=== PATIENT | female | born 1980 | race Caucasian/White ===

== ENCOUNTER 2020-05-24 06:37 | Emergency (ER) | payer MEDICAID, OTHER ==
[2020-05-24 06:53] VITALS: O2SAT 99
--- NOTE | 2020-05-24 06:57 | ERPHSYRPT ---
- History of Present Illness Time Seen by Provider: 05/24/20 06:45 Source: patient Exam Limitations: no limitations Physician History: 40-year-old white female smoker of cigarettes who presents with 3-day history of cough and wheezing. Patient has an inhaler of Ventolin and she is been using this was not helping much. Symptoms are worse. She has no fever. She has no shortness of breath. She has no myalgias or arthralgias. She does not have headache. She has no nausea vomiting or diarrhea Timing/Duration: day(s) (3) Cough Quality/Degree: dry cough Possible Cause: occasional episodes Modifying Factors: Improves With: coughing Associated Symptoms: cough, wheezing, No chest pain/soreness, No earache, No muscle aches, No shortness of breath Allergies/Adverse Reactions: No Known Drug Allergies Allergy (Unverified 06/03/19 08:21) Home Medications: Alprazolam 1 mg [Xanax 1 mg] 1 mg PO TID 06/08/14 [History] ALPRAZolam [Alprazolam] 0.5 mg PO TIDPRN 05/29/19 [History] Lisinopril 20 mg [Zestril 20 MG] 20 mg PO DAILY 05/29/19 [History] Sertraline HCl [Zoloft] 200 mg PO DAILY 05/29/19 [History] Trazodone HCl 150 mg PO HS PRN PRN 05/29/19 [History] Hx Tetanus, Diphtheria Vaccination/Date Given: Yes Hx Influenza Vaccination/Date Given: No Hx Pneumococcal Vaccination/Date Given: No Travel Risk - International Travel Have you traveled outside of the country in past 3 weeks: No - Coronavirus Screening Are you exhibiting any of the following symptoms?: Yes Symptoms: Cough: New Onset Close contact with a COVID-19 positive Pt in past 14-21 Days: No - Review of Systems Constitutional: No Symptoms Eyes: No Symptoms Ears, Nose, & Throat: No Symptoms Respiratory: Cough, Wheezing Cardiac: No Symptoms Abdominal/Gastrointestinal: No Symptoms Genitourinary Symptoms: No Symptoms Musculoskeletal: No Symptoms Skin: No Symptoms Neurological: No Symptoms Psychological: No Symptoms Endocrine: No Symptoms Hematologic/Lymphatic: No Symptoms Immunological/Allergic: No Symptoms All Other Systems: Reviewed and Negative - Past Medical History Pertinent Past Medical History: Yes Neurological History: No Pertinent History ENT History: No Pertinent History Cardiac History: No Pertinent History Respiratory History: No Pertinent History Endocrine Medical History: No Pertinent History Musculoskeletal History: No Pertinent History GI Medical History: No Pertinent History History: No Pertinent History Psycho-Social History: Depression Female Reproductive Disorders: No Pertinent History Other Medical History: pt lethargic, no family with her, unable to obtain hx. - Past Surgical History Past Surgical History: Yes (recent repeat ) Neuro Surgical History: No Pertinent History Cardiac: No Pertinent History Respiratory: No Pertinent History Gastrointestinal: No Pertinent History Genitourinary: No Pertinent History Musculoskeletal: No Pertinent History Female Surgical History: Section, Other Other Surgical History: pt lethargic, no family with her, unable to obtain hx. - Social History Smoking Status: Unknown if ever smoked Exposure to second hand smoke: No Drug Use: none Patient Lives Alone: No - Physical Exam General Appearance: no apparent distress, alert, anxiety Eye Exam: PERRL/EOMI, eyes nml inspection Ears, Nose, Throat Exam: normal ENT inspection Neck Exam: normal inspection, non-tender, supple, full range of motion Respiratory Exam: airway intact, wheezing (Mild expiratory), No normal breath sounds, No chest tenderness, No respiratory distress Cardiovascular Exam: regular rate/rhythm, normal heart sounds, normal peripheral pulses Gastrointestinal/Abdomen Exam: soft, normal bowel sounds, No tenderness Pelvic Exam: not done Rectal Exam: not done Back Exam: normal inspection, normal range of motion, No CVA tenderness, No vertebral tenderness Extremity Exam: normal inspection, normal range of motion, pelvis stable Neurologic Exam: alert, oriented x 3, cooperative, station cashier II-XII nml as tested, normal mood/affect, nml cerebellar function, nml station & gait, sensation nml Skin Exam: normal color, warm, dry Lymphatic Exam: No adenopathy SpO2 Interpretation: normal O2 Delivery: Room Air - Course Nursing assessment & vital signs reviewed: Yes - Progress Progress: unchanged Air Movement: good Blood Culture(s) Obtained: No Antibiotics given: No Counseled pt/family regarding: diagnosis, need for follow-up - Departure Departure Disposition: Home Clinical Impression: Bronchitis Condition: Stable Critical Care Time: No Referrals: BRENNAN FREY [Primary Care Provider] - Additional Instructions: Take medications as prescribed. Stop smoking. Avoid exposure to any smoke. Fo llow-up with your primary care physician for further management Forms: Work/School Release Form Prescriptions: Prednisone 10 mg [Deltasone 10 mg] 10 mg PO TID #12 tablet Hydrocodone Bit/Acetaminophen [Hydrocodone-Acetaminophen Soln] 10 ml PO Q6H #120 ml Azithromycin 250 mg [Zithromax 250 MG TABLET] 250 mg PO ZPACK #6 tablet
[2020-05-24 07:17] VITALS: BP 143/90; PULSE 89
== END 2020-05-24 07:17 | disposition home or self-care (01) ==
LOC: ED 06:37
DX: J40 Bronchitis, not specified as acute or chronic (principal)
CPT/HCPCS: 99283